=== PATIENT | male | born 1995 | race Caucasian/White ===

== ENCOUNTER 2017-04-17 13:04 | Emergency (ER) | payer OTHER ==
[2017-04-17 13:51] LABS: BASOPHIL 0.8 % (0-2); EOSINOPHIL 5.1 % (0-5); HGB 14.2 g/dl (13.2-18.0); LYMPHOCYTE 42.3 % (15-48); MCH 29.8 pg (25.0-31.0); MCHC 34.6 g/dL (32.0-36.0); MCV 86.1 fL (78.0-100.0); MPV 8.4 fL (6.0-9.5); NEUTROPHIL 39.8 % (41-80); PLT 214 K/uL (150-400); RBC 4.76 M/uL (4.70-6.00); RDW 12.7 % (11.5-14.0); WBC 5.3 K/uL (4.0-10.5)
[2017-04-17 14:59] LABS: BILIRUBIN NEGATIVE (NEGATIVE); BLOOD NEGATIVE Ery/uL (NEGATIVE); CLARITY CLEAR (CLEAR); COLOR YELLOW (YELLOW); GLUCOSE (U) NORMAL (NORMAL); KETONE (U) NEGATIVE (NEGATIVE); LEUKOCYTES NEGATIVE Leu/uL (NEGATIVE); NITRITE NEGATIVE (NEGATIVE); PROTEIN NEGATIVE (NEGATIVE); UROBILINOGEN 0.2 mg/dL (0.2-1.0)
== END 2017-04-17 15:08 | disposition home or self-care (01) ==
LOC: FER 13:04
PROVIDERS: Emergency Medicine
DX: R59.0 Localized enlarged lymph nodes (principal); F17.210 Nicotine dependence, cigarettes, uncomplicated; Z88.5 Allergy status to narcotic agent
CPT/HCPCS: 36415; 81003; 85025; 99283